=== PATIENT | female | born 1960 | race Two or more races ===

== ENCOUNTER 2019-07-17 08:52 | Day surgery (SDC) | payer OTHER ==
[~2019-07-17 08:52] MED LIST: AVAPRO300 MG
== END 2019-07-17 11:15 | disposition home or self-care (01) ==
LOC: AMB-ENDOS 08:52 → ADM 14:30
DX: K59.09 Other constipation (principal); K64.4 Residual hemorrhoidal skin tags; K64.0 First degree hemorrhoids